=== PATIENT | female | born 1965 | race Caucasian/White ===

== ENCOUNTER → 2021-02-18 | Outpatient (CLI) | payer OTHER ==
[~2021-02-18] MED LIST: AUGMENTIN 875-1 EACH PO; CIPRO500 MG PO; DIFLUCAN150 MG PO; FLAGYL500 MG PO; NORCO 5-325 TA1 EACH PO; TRAMADOL HCL50 MG PO; VIBRAMYCIN100 MG PO; ZOFRAN4 MG PO
== END ==
LOC: RAD 16:34
DX: J45.41 Moderate persistent asthma with (acute) exacerbation (principal); J20.9 Acute bronchitis, unspecified; E11.65 Type 2 diabetes mellitus with hyperglycemia; R91.8 Other nonspecific abnormal finding of lung field
CPT/HCPCS: 71046

== ENCOUNTER → 2021-05-07 | Outpatient (CLI) | payer OTHER | LOC: CT 10:29 | DX: J84.10 Pulmonary fibrosis, unspecified (principal); R91.8 Other nonspecific abnormal finding of lung field; E27.8 Other specified disorders of adrenal gland | CPT/HCPCS: 71260; Q9963 ==